=== PATIENT | male | born 1985 | race American Indian/Alaskan Native ===

== ENCOUNTER 2017-09-18 01:43 | Emergency (ER) | payer SELFPAY ==
[2017-09-18] MEDS ORDERED: TYLENOL PO ONE (05:21)
[2017-09-18] MEDS ORDERED: TYLENOL ONE (05:22)
--- NOTE | 2017-09-18 08:39 | Emergency Department Report ---
ED Headache HPI - General Chief Complaint: Headache Stated Complaint: H/A Time Seen by Provider: 09/18/17 07:53 - History of Present Illness Initial Comments: 32-year-old male past medical history seizures presents with complaint of headache which occurred yesterday. 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 Patient states that while at work yesterday afternoon he noticed that maintenance crew was cleaning area where he works in warehouse facility and he became slightly lightheaded after inhaling possible fumes from cleaning products. Patient states this was brief and he left the area after he began to feel lightheaded. Experienced headache afterward. Described it as slightly frontal and throbbing. States he had slightly watery irritated eyes which he associates with expsoure to cleaning products. Denies any direct physical exposure other than to possible fumes. Headache resolved after 2-3 hours. Patient states he came to the ED because he was not sure why he experienced headache. Patient denies any respiratory distress coughing nausea vomiting abdominal pain and chest pain, shortness of breath or palpitations. Denies any aura any new blurry vision ( although pt states he does not have his glasses at this time and needs new prescription). Headache has since resolved. States that he was given Tylenol and has absolutely no headache at this time. Patient is awake alert and oriented 3 not in acute distress fully lucid and ambulatory. Patient denies any recent head injuries or head trauma. I asked the patient several times if he is still experiencing headache and he denied any headache symptoms during my interview. Patient denies any alcohol or drug use. Patient is requesting a note for work to have today off. I specifically asked patient if he experienced any prodrome associated with his past history of seizures. Patient states that he did not. Patient denies being on any seizure medicine states he has not been on seizure medicine for several years as it was discontinued by his primary care doctor. Patient has not had a seizure in 10+ years as per my conversation with him. Timing/Duration: other (resolved) Quality: mild Head Injury Location: frontal Associated Symptoms: denies symptoms Allergies/Adverse Reactions: Allergies No Known Allergies Allergy (Unverified 09/18/17 05:15) Home Medications: Ambulatory Orders Acetaminophen [Acetaminophen TAB] 500 mg PO Q6HR PRN #15 tablet 09/18/17 Tetrahydrozoline HCl/Zinc Sulf [Visine Allergy Relief Drop] 1 drop OP Q4H PRN # 1 drops 09/18/17 ED Review of Systems ROS: Stated complaint: H/A Other details as noted in HPI Constitutional: denies: chills, fever Eyes: denies: eye pain, eye discharge, vision change ENT: denies: ear pain, throat pain Respiratory: denies: cough, shortness of breath, wheezing Cardiovascular: denies: chest pain, palpitations Endocrine: no symptoms reported Gastrointestinal: denies: abdominal pain, nausea, diarrhea Genitourinary: denies: urgency, dysuria Musculoskeletal: denies: back pain, joint swelling, arthralgia Skin: denies: rash, lesions Neurological: headache (has since resolved). denies: weakness, paresthesias Psychiatric: denies: anxiety, depression Hematological/Lymphatic: denies: easy bleeding, easy bruising ED Past Medical Hx - Past Medical History Previous Medical History?: Yes Hx Seizures: Yes - Surgical History Past Surgical History?: No - Social History Smoking Status: Never Smoker Substance Use Type: None - Medications Home Medications: Home Medications Medication Instructions Recorded Confirmed Last Taken Type Acetaminophen [Acetaminophen TAB] 500 mg PO Q6HR PRN #15 tablet 09/18/17 Unknown Rx Tetrahydrozoline HCl/Zinc Sulf 1 drop OP Q4H PRN #1 drops 09/18/17 Unknown Rx [Visine Allergy Relief Drop] ED Physical Exam - General Limitations: No Limitations General appearance: alert, in no apparent distress - Head Head exam: Present: atraumatic, normocephalic - Eye Eye exam: Present: normal appearance, PERRL, EOMI - Expanded Eye Exam Expanded Pupils: Regular, Round: Bilateral, Reactive: Bilateral Sclera/Conjunctival: Normal Inspection: Bilateral Visual acuity (R) = 20/: 40 Visual acuity (L) = 20/: 40 - ENT ENT exam: Present: mucous membranes moist - Neck Neck exam: Present: normal inspection, full ROM (neck flexion and extension intact on exam) - Respiratory Respiratory exam: Present: normal lung sounds bilaterally. Absent: respiratory distress - Cardiovascular Cardiovascular Exam: Present: regular rate, normal rhythm. Absent: systolic murmur, diastolic murmur, rubs, gallop - GI/Abdominal GI/Abdominal exam: Present: soft, normal bowel sounds - Rectal Rectal exam: Present: deferred - Extremities Exam Extremities exam: Present: normal inspection - Back Exam Back exam: Present: normal inspection - Neurological Exam Neurological exam: Present: alert, oriented X3, CN II-XII intact, normal gait - Expanded Neurological Exam Expanded Patient oriented to: Present: person, place, time Cranial nerves: EOM's Intact: Normal, Facial Sensation: Normal Cerebellar function: Finger to Nose: Normal, Heel to Larios: Normal, Romberg: Normal Sensory exam: Upper Extremity Light Touch: Normal, Lower Extremity Light Touch: Normal Motor strength exam: RUE: 5, LUE: 5, RLE: 5, LLE: 5 Best Eye Response (Bernardino): (4) open spontaneously Best Motor Response (Bernardino): (6) obeys commands Best Verbal Response (Bernardino): (5) oriented [place] Total: 15 - Psychiatric Psychiatric exam: Present: normal affect, normal mood - Skin Skin exam: Present: warm, dry, intact, normal color. Absent: rash ED Course Vital Signs 09/18/17 05:15 Temperature 97.8 F Pulse Rate 60 Respiratory 18 Rate Blood Pressure 113/76 O2 Sat by Pulse 98 Oximetry ED Medical Decision Making - Medical Decision Making A/P: Noxious exposure to cleaning products, headache 1-headache is completely resolved as per patient. Was also spontaneously. Patient states that he was given Tylenol when he entered the ED and he has absolutely no headache at this time. Headache likely induced by exposure to noxious cleaning chemicals. 2-CN 2,3, 4, 5, 6, 7, 8,10, 11, 12 intact on clinical exam, patient is fully lucid awake alert and oriented 3 conversant. Visual acuity 20/40. Denies any upper or lower extremity paresthesias and has 5/5 strength in bilateral upper and lower extremities on clinical exam. No indication for brain imaging at this time as patient has no neurological deficits on exam and has fully resolved headache. 3- follow-up with primary medical doctor this week 4- patient given precautions, instructed to return to the ED for any confusion, lethargy, chest pain, shortness of breath, abdominal pain, inability to tolerate by mouth, paresthesias, inability to ambulate. 5- pt independently ambulatory without assistance upon discharge 6- I advised patient to wear a face mask or goggles at work when cleaning products are being used over widespread area with 2 avoid chemical irritants altogether. Critical care attestation.: If time is entered above; I have spent that time in minutes in the direct care of this critically ill patient, excluding procedure time. ED Disposition Clinical Impression: Occupational exposure to chemicals Disposition: DC- TO HOME OR SELFCARE Is pt being admited?: No Does the pt Need Aspirin: No Condition: Stable Prescriptions: Acetaminophen [Acetaminophen TAB] 500 mg PO Q6HR PRN #15 tablet PRN Reason: Headache Tetrahydrozoline HCl/Zinc Sulf [Visine Allergy Relief Drop] 1 drop OP Q4H PRN # 1 drops PRN Reason: Dry Eye(S) Referrals: PRIMARY CARE, [Primary Care Provider] - 3-5 Days [facility] [Provider Group] - 3-[address] [facility] [Outside] - 3-5 Days Forms: Work/School Release Form(ED) Time of Disposition: 08:49
[2017-09-18 09:00] VITALS: BP 134/87
== END 2017-09-18 08:59 | disposition home or self-care (01) ==
LOC: ED 01:43
DX: Z77.098 Contact with and (suspected) exposure to other hazardous, chiefly nonmedicinal, chemicals (principal); R51 Headache
CPT/HCPCS: 99283

== ENCOUNTER 2021-08-12 17:36 | Emergency (ER) | payer SELFPAY ==
[2021-08-12 18:09] VITALS: BP 114/72
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
== END 2021-08-12 19:19 | disposition home or self-care (01) ==
LOC: ED 17:36
DX: S39.012A Strain of muscle, fascia and tendon of lower back, initial encounter (principal); V89.2XXA Person injured in unspecified motor-vehicle accident, traffic, initial encounter; Y93.89 Activity, other specified; Y92.89 Other specified places as the place of occurrence of the external cause; Y99.8 Other external cause status
CPT/HCPCS: 99282

== ENCOUNTER 2022-01-08 09:42 | Emergency (ER) | payer SELFPAY ==
[2022-01-08] MEDS ORDERED: SODIUM CHLORIDE 0.9% 1000 ML 1,000 ML IV ONE (09:57)
--- NOTE | 2022-01-08 10:22 | XRay Report ---
CHEST 1 VIEW 01/08/2022 9:12 AM INDICATION / CLINICAL INFORMATION: syncope. COMPARISON: None available. FINDINGS: SUPPORT DEVICES: None. HEART / MEDIASTINUM: No significant abnormality. LUNGS / PLEURA: No significant pulmonary or pleural abnormality. No pneumothorax. ADDITIONAL FINDINGS: No significant additional findings. IMPRESSION: No acute abnormality. Signer Name: Clarence Martell MD Signed: 01/08/2022 10:18 AM Workstation Name: [id number]
[2022-01-08 11:50] LABS: Basophils % (Auto) 0.4 % (0.0-1.8); Eosinophils % (Auto) 0.7 % (0.0-4.3); Hematocrit 38.9 % (35.5-45.6); Hemoglobin 12.8 gm/dl (11.8-15.2); Lymphocytes # (Auto) 1.2 K/mm3 (1.2-5.4); Lymphocytes % (Auto) 23.3 % (13.4-35.0); Mean Corpuscular HGB Conc 33 % (32-34); Mean Corpuscular Volume 85 fl (84-94); Monocytes # (Auto) 0.5 K/mm3 (0.0-0.8); Monocytes % (Auto) 9.4 % (0.0-7.3); Platelet Count 211 K/mm3 (140-440); Red Cell Distribution Width 14.6 % (13.2-15.2)
[2022-01-08 12:00] LABS: INR 0.91 (0.87-1.13)
[2022-01-08 12:36] LABS: Creatine Kinase MB 2.7 ng/mL (0.0-4.0)
[2022-01-08 12:37] LABS: Alanine Aminotransferase 13 units/L (7-56); Albumin 4.3 g/dL (3.9-5); BUN/Creatinine Ratio 19; Blood Urea Nitrogen 17 mg/dL (9-20); Calcium 9.1 mg/dL (8.4-10.2); Hemolysis Index 5
--- NOTE | 2022-01-08 12:44 | Emergency Department Report ---
ED General Adult HPI - General Chief complaint: Fall Stated complaint: FALL FROM STANDING POSITION Time Seen by Provider: 01/08/22 09:57 Source: patient Mode of arrival: Stretcher Limitations: No Limitations - History of Present Illness Initial comments: GLF at work. c/o head pain. no loc. states he felt dizzy woeks in [employer] house poorly ventillated per patient, no chets pain no loc, -: Sudden, hour(s) Improves with: none Worsens with: none Associated Symptoms: syncope. denies: denies other symptoms, confusion, chest pain, headaches, loss of appetite Treatments Prior to Arrival: none - Related Data Previous Rx's Medication Instructions Recorded Last Taken Type Acetaminophen [Acetaminophen TAB] 500 mg PO Q6HR PRN #15 tablet 09/18/17 Unknown Rx Tetrahydrozoline HCl/Zinc Sulf 1 drop OP Q4H PRN #1 drops 09/18/17 Unknown Rx [Visine Allergy Relief Drop] Ibuprofen [Motrin] 600 mg PO Q8H PRN #20 tablet 08/12/21 Unknown Rx Allergies Allergy/AdvReac Type Severity Reaction Status Date / Time No Known Allergies Allergy Verified 01/08/22 09:45 ED Review of Systems ROS: Stated complaint: FALL FROM STANDING POSITION Other details as noted in HPI Constitutional: denies: chills, fever Eyes: denies: eye pain, eye discharge, vision change ENT: denies: ear pain, throat pain Respiratory: denies: cough, shortness of breath, wheezing Cardiovascular: denies: chest pain, palpitations Endocrine: no symptoms reported Gastrointestinal: denies: abdominal pain, nausea, diarrhea Genitourinary: denies: urgency, dysuria Musculoskeletal: denies: back pain, joint swelling, arthralgia Skin: denies: rash, lesions Neurological: denies: headache, weakness, paresthesias Psychiatric: denies: anxiety, depression Hematological/Lymphatic: denies: easy bleeding, easy bruising ED Past Medical Hx - Past Medical History Hx Seizures: Yes - Social History Smoking Status: Never Smoker Substance Use Type: None - Medications Home Medications: Home Medications Medication Instructions Recorded Confirmed Last Taken Type Acetaminophen [Acetaminophen TAB] 500 mg PO Q6HR PRN #15 tablet 09/18/17 Unknown Rx Tetrahydrozoline HCl/Zinc Sulf 1 drop OP Q4H PRN #1 drops 09/18/17 Unknown Rx [Visine Allergy Relief Drop] Ibuprofen [Motrin] 600 mg PO Q8H PRN #20 tablet 08/12/21 Unknown Rx ED Physical Exam - General Limitations: No Limitations ED Course Vital Signs 01/08/22 01/08/22 01/08/22 09:43 10:21 11:00 Temperature 98.6 F Pulse Rate 80 64 59 L Respiratory 18 13 15 Rate Blood Pressure 112/63 Blood Pressure 140/80 [Left] O2 Sat by Pulse 100 98 Oximetry 01/08/22 11:30 Temperature Pulse Rate Respiratory Rate Blood Pressure Blood Pressure [Left] O2 Sat by Pulse 100 Oximetry ED Medical Decision Making - Lab Data Result diagrams: 01/08/22 10:08 01/08/22 10:08 Critical care attestation.: If time is entered above; I have spent that time in minutes in the direct care of this critically ill patient, excluding procedure time. ED Disposition Clinical Impression: Fall, Syncope Disposition: 01 HOME / SELF CARE / HOMELESS Is pt being admited?: No Does the pt Need Aspirin: No Condition: Stable Instructions: Near-Syncope, [id number], Syncope (ED) Referrals: MIHIR MCCABE MD [Primary Care Provider] - 3-5 Days
[2022-01-08 12:51] VITALS: BP 123/77
[2022-01-08 12:58] LABS: C-Reactive Protein < 0.30 mg/dL (0.00-1.30)
== END 2022-01-08 13:39 | disposition home or self-care (01) ==
LOC: ED 09:42
DX: R55 Syncope and collapse (principal); W19.XXXA Unspecified fall, initial encounter; Y93.89 Activity, other specified; Y92.89 Other specified places as the place of occurrence of the external cause; Y99.8 Other external cause status
CPT/HCPCS: 36415; 71045; 80053; 82550; 82553; 83880; 84484; 85025; 85610; 86140; 96360; 99284